=== PATIENT | female | born 1955 | race Caucasian/White ===

== ENCOUNTER 2024-09-23 09:59 | Inpatient (IN) | payer MEDICARE, OTHER ==
[~2024-09-23] VITALS: Ht 165.1 cm; Wt 67.2 kg
[2024-09-23] MEDS ORDERED: OXYMETAZOLINE HCL NASAL SPRAY 30 ML BOTTLE NS ONE (11:40)
[2024-09-23] MEDS ORDERED: dexaMETHasone SOD PHOSPHATE 2 ML ONE (11:40)
[2024-09-23] MEDS ORDERED: LIDOCAINE 2%-EPI 1:100,000 30 ML VIAL ONE (11:40)
[2024-09-23] MEDS ORDERED: VANCOMYCIN 1 GM VIAL ONE (11:40)
[2024-09-23] MEDS: ACETAMINOPHEN 325 MG TABLET PO PRN (12:30)
[2024-09-23] MEDS ORDERED: CLINDAMYCIN IV RTU IN D5W 50 ML ONE (12:30)
[2024-09-23 12:56] LABS: BASOPHILS % (AUTO) 0.5 % (0.0-2.0); EOSINOPHILS # (AUTO) 0.1 K/uL (0.0-0.7); EOSINOPHILS % (AUTO) 3.6 % (0.0-6.0); HEMATOCRIT 40 % (33-45); HEMOGLOBIN 13.7 g/dL (11.5-14.8); LYMPHOCYTES # (AUTO) 1.7 K/uL (0.8-4.8); LYMPHOCYTES % (AUTO) 42.9 % (20.0-44.0); MEAN CORPUSCULAR HEMOGLOBIN 31 PG (26.0-33.0); MEAN CORPUSCULAR HGB CONC 35 g/dl (31.0-36.0); MEAN CORPUSCULAR VOLUME 91 fL (82-100); MONOCYTES # (AUTO) 0.3 K/uL (0.1-1.30); MONOCYTES % (AUTO) 8.7 % (2.0-12.0); NEUTROPHILS # (AUTO) 1.7 K/uL (1.8-8.9); NEUTROPHILS % (AUTO) 44.3 % (43.0-81.0); PLATELET COUNT (AUTO) 182 K/uL (150-450); RED BLOOD CELL COUNT(AUTO) 4.38 MIL/uL (4.0-5.2); RED CELL DISTRIBUTION WIDTH 13.4 % (11.5-15.0); WHITE BLOOD COUNT (AUTO) 3.9 K/uL (4.3-11.0)
[2024-09-23] MEDS ORDERED: FAMOTIDINE/PF INJ 20 MG/2 ML VIAL IV ONE (13:46)
[2024-09-23] MEDS ORDERED: FENTANYL PF 100MCG/2ML AMPUL ONE (13:46)
[2024-09-23] MEDS ORDERED: TRANEXAMIC ACID 1,000 MG/10 ML VIAL ONE (13:46)
[2024-09-23] MEDS ORDERED: ROCURONIUM BROMIDE 50 MG/5 ML ONE (13:46)
[2024-09-23] MEDS ORDERED: ONDANSETRON HCL/PF 4 MG/2 ML VIAL IVP PRN ×3 (15:00→18:00)
[2024-09-23] MEDS ORDERED: FENTANYL PF 100MCG/2ML AMPUL IV PRN (15:00)
[2024-09-23 16:15] VITALS: BP 147/71; TEMP 98; O2SAT 96
[2024-09-23] MEDS ORDERED: HYDROMORPHONE 1 MG/1 ML DISP.SYRIN IV PRN (17:00)
[2024-09-23] MEDS ORDERED: ACETAMINOPHEN 325 MG TABLET PO PRN ×2 (17:00→18:00)
[2024-09-23] MEDS: IV NS 0.9% 1,000 ML IV PRN (17:35)
[2024-09-23] MEDS ORDERED: HYDROCODONE/APAP 5/325MG TABLET PO PRN (18:00)
[2024-09-23] MEDS ORDERED: MAGNESIUM HYDROXIDE 30 ML UDC PO PRN (18:00)
[2024-09-23] MEDS ORDERED: Z GUARD REMEDY 4 OZ OINT TP PRN (18:00)
[2024-09-23] MEDS ORDERED: MAG HYDROX/AL HYDROX/SIMETH 30 ML UDC PO PRN (18:00)
[2024-09-23 20:00] VITALS: BP 126/84; TEMP 97.7; O2SAT 96
[2024-09-23] MEDS: CLINDAMYCIN 600 MG in IV NS 0.9% 46 ML IV SCH (20:47)
[2024-09-24 08:00] VITALS: BP 119/55; TEMP 98.1; O2SAT 100
[2024-09-24 08:13] LABS: HEMATOCRIT 39 % (33-45); HEMOGLOBIN 13.9 g/dL (11.5-14.8); LYMPHOCYTES # (AUTO) 0.8 K/uL (0.8-4.8); LYMPHOCYTES % (AUTO) 9.4 % (20.0-44.0); MEAN CORPUSCULAR HEMOGLOBIN 32 PG (26.0-33.0); MEAN CORPUSCULAR HGB CONC 36 g/dl (31.0-36.0); MEAN CORPUSCULAR VOLUME 90 fL (82-100); MONOCYTES # (AUTO) 0.4 K/uL (0.1-1.30); MONOCYTES % (AUTO) 4.4 % (2.0-12.0); NEUTROPHILS # (AUTO) 7.5 K/uL (1.8-8.9); NEUTROPHILS % (AUTO) 86.2 % (43.0-81.0); PLATELET COUNT (AUTO) 189 K/uL (150-450); RED BLOOD CELL COUNT(AUTO) 4.37 MIL/uL (4.0-5.2); RED CELL DISTRIBUTION WIDTH 13.3 % (11.5-15.0); WHITE BLOOD COUNT (AUTO) 8.7 K/uL (4.3-11.0)
[2024-09-24] MEDS: PHENOL/SODIUM PHENOLATE 1 LOZ LOZENGE PO ONE (09:10)
[2024-09-24] MEDS: MAG HYDROX/AL HYDROX/SIMETH 30 ML UDC PO PRN (10:45)
[2024-09-24 19:58] LABS: CALCIUM, SERUM 8.7 mg/dL (8.5-10.1); CREATININE 0.9 mg/dL (0.6-1.3); MAGNESIUM 2.1 mg/dL (1.8-2.4); PHOSPHORUS 3.5 mg/dL (2.5-4.9); POTASSIUM 4.2 mmol/L (3.5-5.1)
== END 2024-09-24 12:15 | disposition home or self-care (01) | DRG 496 ==
LOC: DS 09:59 → MED 16:06
PROVIDERS: ADMIT Internal Medicine; ATTEND Internal Medicine
PROC: 0NST04Z Reposition Right Mandible with Internal Fixation Device, Open Approach (ICD-10-PCS; principal; 2024-09-23)
PROC: 0N5T0ZZ Destruction of Right Mandible, Open Approach (ICD-10-PCS; 2024-09-23)
PROC: 0NUT07Z Supplement Right Mandible with Autologous Tissue Substitute, Open Approach (ICD-10-PCS; 2024-09-23)
PROC: 0NPW0JZ Removal of Synthetic Substitute from Facial Bone, Open Approach (ICD-10-PCS; 2024-09-23)
DX: T84.7XXA Infection and inflammatory reaction due to other internal orthopedic prosthetic devices, implants and grafts, initial encounter (principal); S02.69XA Fracture of mandible of other specified site, initial encounter for closed fracture; Y83.8 Other surgical procedures as the cause of abnormal reaction of the patient, or of later complication, without mention of misadventure at the time of the procedure; Y92.009 Unspecified place in unspecified non-institutional (private) residence as the place of occurrence of the external cause; M27.2 Inflammatory conditions of jaws; E78.5 Hyperlipidemia, unspecified; D16.4 Benign neoplasm of bones of skull and face; I10 Essential (primary) hypertension; Z88.1 Allergy status to other antibiotic agents; Z82.49 Family history of ischemic heart disease and other diseases of the circulatory system
CPT/HCPCS: 36415; 80048-TC; 83735-TC; 84100-TC; 85025-TC; A4223; A4338; C1713; G0378; J1100; J3010; J3370; J3490; J7030